=== PATIENT | male | born 1960 | race Caucasian/White ===

== ENCOUNTER 2017-02-18 02:55 | Emergency (ER) | payer OTHER ==
[~2017-02-18 02:55] MED LIST: ALLOPURINOL300 MG PO; ATIVAN1 MG PO; ECO81 PO; LISINOPRIL-HYDR1 TA2 PO; OMEPRAZOLE DR20 M1 PO; PROAIR HFA0.09 MG/A1 INH; ZES5 PO
[2017-02-18 05:50] VITALS: BP 126/92
== END 2017-02-18 05:50 | disposition home or self-care (01) ==
LOC: ED 02:55
DX: M10.9 Gout, unspecified (principal)
CPT/HCPCS: J1170; J1885; J2930; Q0092